=== PATIENT | male | born 1955 | race Caucasian/White ===

== ENCOUNTER 2017-03-04 13:02 | Emergency (ER) | payer MEDICAID ==
[~2017-03-04] VITALS: Ht 170.2 cm; Wt 80.0 kg
[~2017-03-04 13:02] MED LIST: ASPI-867 PO; ATOR10TA PO; CEPH-569 PO; METF850T2 PO; OMEP20CA10 PO
[2017-03-04] MEDS ORDERED: KETOROLAC 30MG/ML VIAL IV STA (14:29)
[2017-03-04] MEDS ORDERED: SODIUM CHLORIDE 0.9% 1,000 ML IV ONE ×2 (14:29→16:45)
[2017-03-04] MEDS ORDERED: ONDANSETRON HCL 4MG/2ML VIAL IV STA (14:29)
[2017-03-04 15:03] LABS: BASOPHILS % 0.8 % (0.0-2.0); EOSINOPHILS % 0.4 % (0.0-5.0); HEMATOCRIT. 44.5 % (42.0-52.0); HEMOGLOBIN. 15.4 g/dL (14.0-18.0); LYMPHOCYTES % 10.7 % (20.0-50.0); MEAN CORPUSCULAR HEMOGLOBIN 29.9 pg (28.0-32.0); MEAN CORPUSCULAR VOLUME 86.4 fL (80.0-94.0); MEAN PLATELET VOLUME 7.4 fl (7.4-10.4); NEUTROPHILS % 76.1 % (40.0-76.0); PLATELET 225 x1000/uL (130-400); RED BLOOD CELL COUNT 5.15 mill/uL (4.7-6.1); RED CELL DISTRIBUTION WIDTH 13.9 % (11.6-14.6)
[2017-03-04 15:09] LABS: PROTHROMBIN TIME 10.2 sec (9.4-11.6)
[2017-03-04 15:13] LABS: CHLORIDE 103 mEq/L (98-107)
[2017-03-04 15:16] LABS: CARBON DIOXIDE 24 mEq/L (21-32)
[2017-03-04 17:53] LABS: CLARITY URINE CLEAR (CLEAR); COLOR URINE YELLOW (YELLOW); GLUCOSE URINE NEGATIVE (NEGATIVE); KETONES URINE 1+ (NEGATIVE); LEUKOCYTE ESTERASE URINE NEGATIVE (NEGATIVE); NITRITE URINE NEGATIVE (NEGATIVE); OCCULT BLOOD URINE 3+ (NEGATIVE); PROTEIN URINE NEGATIVE (NEGATIVE); SPECIFIC GRAVITY URINE 1.012 (1.005-1.030); UROBILINOGEN URINE 0.2 E.U./dL (0.2-1.0)
[2017-03-04 21:00] VITALS: BP 120/74
== END 2017-03-04 21:15 | disposition home or self-care (01) ==
LOC: ER 13:11
DX: N13.2 Hydronephrosis with renal and ureteral calculous obstruction (principal); R31.9 Hematuria, unspecified; I10 Essential (primary) hypertension; E78.00 Pure hypercholesterolemia, unspecified; E11.9 Type 2 diabetes mellitus without complications; Z87.442 Personal history of urinary calculi; Z79.82 Long term (current) use of aspirin
CPT/HCPCS: 36415; 74176; 80053; 81001; 83690; 85025; 85610; 96361; 96374; 96375; 99285; J1885; J2405; J7030

== ENCOUNTER 2022-12-16 10:34 | Emergency (ER) | payer MEDICAID ==
[~2022-12-16] VITALS: Ht 185.4 cm; Wt 95.0 kg
[~2022-12-16 10:34] MED LIST changes: +METF-415 PO; -METF850T2 PO; -OMEP20CA10 PO; +OMEP20CA14 PO
[2022-12-16 10:37] VITALS: O2SAT 97
[2022-12-16 11:58] LABS: CHLORIDE 105 mEq/L (98-107); INDEX HEMOLYSI 1 (1-3); INDEX ICTERIC 1 (1-4); INDEX LIPEMIC 1 (1-3); POTASSIUM 4.3 mEq/L (3.5-5.1); SODIUM 137 mEq/L (136-145)
[2022-12-16 12:07] LABS: BASOPHILS % 0.3 % (0.0-2.0); EOSINOPHILS % 0.2 % (0.0-5.0); HEMATOCRIT. 43.8 % (42.0-52.0); HEMOGLOBIN. 14.9 g/dL (14.0-18.0); LYMPHOCYTES % 9.5 % (20.0-50.0); MEAN CORPUSCULAR HEMOGLOBIN 30.1 pg (28.0-32.0); MEAN CORPUSCULAR VOLUME 88.5 fL (80.0-94.0); MONOCYTES % 7.8 % (2.0-8.0); NEUTROPHILS % 82.2 % (40.0-76.0); PLATELET 234 x1000/uL (130-400); RED BLOOD CELL COUNT 4.95 mill/uL (4.7-6.1); RED CELL DISTRIBUTION WIDTH 14.6 % (11.6-14.6); WHITE BLOOD COUNT 13.5 x1000/uL (4.5-11.0)
[2022-12-16 12:10] LABS: ALANINE AMINOTRANSFERASE 132 IU/L (13-61); BILIRUBIN TOTAL 0.7 mg/dL (0.1-1.0)
[2022-12-16 13:40] LABS: ASPARTATE AMINOTRANSFERASE 88 IU/L (15-37); CALCIUM 9.5 mg/dL (8.5-10.1); CARBON DIOXIDE 23 mEq/L (21-32); CREATININE 0.9 mg/dL (0.6-1.3); GLUCOSE 143 mg/dL (70-105); PROTEIN TOTAL 7.9 g/dL (6.0-8.3); UREA NITROGEN BLOOD 16 mg/dL (7-21)
[2022-12-16] MEDS ORDERED: MORPHINE SULFATE 4 MG/ML CPJ (NOT FOR IM USE) IV STA (15:28)
[2022-12-16] MEDS ORDERED: KETOROLAC 30MG/ML VIAL IV STA (15:28)
[2022-12-16] MEDS ORDERED: SODIUM CHLORIDE 0.9% 1,000 ML IV ONE (15:30)
[2022-12-16] MEDS ORDERED: TAMS-11 MT (17:17)
[2022-12-16] MEDS ORDERED: T3 PO (17:17)
[2022-12-16] MEDS ORDERED: IBUP-2029 MT (17:17)
[2022-12-16 18:42] LABS: CLARITY URINE CLOUDY (CLEAR); COLOR URINE DARK YELLOW (YELLOW); GLUCOSE URINE NEGATIVE (NEGATIVE); KETONES URINE 2+ (NEGATIVE); LEUKOCYTE ESTERASE URINE NEGATIVE (NEGATIVE); NITRITE URINE NEGATIVE (NEGATIVE); OCCULT BLOOD URINE 3+ (NEGATIVE); PH URINE 6.5 (4.5-8.0); PROTEIN URINE 1+ (NEGATIVE); SPECIFIC GRAVITY URINE 1.025 (1.005-1.030)
[2022-12-16 18:44] LABS: YEAST URINE NONE SEEN
[2022-12-16 19:10] LABS: BACTERIA URINE 1+; RBC URINE 50-100 /hpf (0-2); SQUAMOUS EPITHELIAL CELL URINE FEW /lpf (RARE/1+); WBC URINE 0-2 /hpf (0-2)
[2022-12-16 20:25] VITALS: BP 143/78; PULSE 74; RESP 12; TEMP 98.5
== END 2022-12-16 20:25 | disposition home or self-care (01) ==
LOC: ER 11:15
DX: N20.0 Calculus of kidney (principal); E11.9 Type 2 diabetes mellitus without complications; E78.00 Pure hypercholesterolemia, unspecified; I10 Essential (primary) hypertension; Z87.440 Personal history of urinary (tract) infections; Z79.899 Other long term (current) drug therapy
CPT/HCPCS: 80053; 81003; 83690; 85025; 85610; 36415; 74176; 96361; 96374; 96375; 99285; J1885; J2270; J7030; Z7610 ×2

== ENCOUNTER 2023-02-16 14:37 | Emergency (ER) | payer MEDICARE, MEDICAID ==
[~2023-02-16] VITALS: Ht 182.9 cm; Wt 120.0 kg
[~2023-02-16 14:37] MED LIST changes: +IBUP-2029 MT; +T3 PO; +TAMS-11 MT
[2023-02-16] MEDS ORDERED: TETANUS, DIPHTHERIA, PERTUSSIS VAC/PF 0.5ML (>10YR OLD) IM ONE (15:30)
[2023-02-16] MEDS ORDERED: KETOROLAC 30MG/ML VIAL IM ONE (15:30)
[2023-02-16] MEDS ORDERED: BACITRACIN ZINC OINT UDPKT TOP ONE (15:30)
[2023-02-16] MEDS ORDERED: LIDOCAINE HCL/PF 1% 10 MG/ML 5ML VIAL INFIL ONE ×2 (15:30→18:45)
[2023-02-16 15:31] VITALS: BP 132/82; PULSE 98; RESP 16; TEMP 98.5; O2SAT 96
[2023-02-16] MEDS ORDERED: SULF1TAB48 MT (18:56)
[2023-02-16] MEDS ORDERED: CEPH500C2 MT (18:56)
== END 2023-02-16 19:30 | disposition home or self-care (01) ==
LOC: ER 14:37
DX: L02.212 Cutaneous abscess of back [any part, except buttock and flank] (principal); E11.9 Type 2 diabetes mellitus without complications; E78.00 Pure hypercholesterolemia, unspecified; I10 Essential (primary) hypertension
CPT/HCPCS: 99283; J3490

== ENCOUNTER 2023-08-25 01:46 | Emergency (ER) | payer MEDICARE, MEDICAID ==
[~2023-08-25] VITALS: Ht 172.7 cm; Wt 95.0 kg
[~2023-08-25 01:46] MED LIST changes: +CEPH500C2 MT; +SULF1TAB48 MT
[2023-08-25 02:26] VITALS: O2SAT 96
[2023-08-25] MEDS ORDERED: AMOX1TAB16 MT (05:51)
[2023-08-25 06:20] VITALS: BP 135/85; PULSE 79; RESP 16; TEMP 98.6
== END 2023-08-25 06:30 | disposition home or self-care (01) ==
LOC: ER 01:46
DX: J02.9 Acute pharyngitis, unspecified (principal); E11.9 Type 2 diabetes mellitus without complications; Z79.899 Other long term (current) drug therapy
CPT/HCPCS: 99283